=== PATIENT | male | born 1970 | race Caucasian/White ===

== ENCOUNTER 2017-04-04 16:00 | Outpatient (RCR) | payer OTHER | END 2017-04-04 16:30 | disposition home or self-care (01) | LOC: PT 16:00 | DX: G20 Parkinson's disease (principal) ==

== ENCOUNTER → 2019-12-24 | Outpatient (CLI) | payer BC | LOC: RAD 07:55 | DX: M79.89 Other specified soft tissue disorders (principal); G20 Parkinson's disease ==